=== PATIENT | female | born 1985 | race Caucasian/White ===

== ENCOUNTER 2018-03-06 23:50 | Observation (INO) | payer BC, SELFPAY ==
[2018-03-06 23:53] VITALS: BP 98/52; PULSE 100; RESP 16; TEMP 37.2; O2SAT 97
[2018-03-07] VITALS (12 sets, daily range): BP systolic 76–94; BP diastolic 44–63; PULSE 77–110; RESP 16–19; TEMP 36.9–39.2; O2SAT 96–100
--- NOTE | 2018-03-07 00:08 | W.ED.GENAD ---
Discharge Plan Disposition Patient Disposition: [facility] INPATIENT Condition: Stable Discharge Details Chief Complaint: Abd Prob Clinical Impression: Abdominal pain Primary Care Provider: Andra Rich ED Provider: Garret Ochoa Home Meds and New Rx's Prescriptions: No Action No Known Home Meds RF: 0 Medical Decision Making 32 yo female comes in with abd pain, n/v since 4pm. Denies any new foods or recent travel and no other household members with similar symptoms. HAs not had prior surgeries. She has mild discomfort now in upper abdomen otherwise her pain is much better. She is febrile here to 39, so could be gastroenteritis but will evaluate for possible cholecystitis vs pancreatitis pt's labs show hypokalamia and mild elevation of bilirubin. She has pain in the ruq and rlq without guarding on exam. Awaiting CT. CT shows hepatomegaly, enlarged gallbladder, and thickened appendix. She still has right sided abdominal pain, unclear cholecystitis vs appendicitis. Spoke with Dr. Nova and she requests admission and u/s later this morning and hold on abx at this time. Pt remains stable and is agreeable with plan for admission for further workup Differential Diagnosis gastroenteritis, sbo, cholecystitis HPI General Mode of arrival: ambulatory. Date/Time Provider Initiated Documentation: 03/06/18 23:55. Limitations to Documentation: no limitations. Information obtained by: patient. History of Present Illness 32 year old F presents to the emergency department with the chief complaint of abdominal pain, described as moderate, with intensity rated at 4. Quality is described as aching, and is localized to the abdomen. Patient reports no radiation. No relieving factors improve symptom(s), No exacerbating factors reported . Patient notes nausea/vomiting. Patient did receive the following treatments prior to arrival, none Related Data Home Medications Medication Instructions Recorded Confirmed Unknown [No Known Home Meds] 12/16/17 03/06/18 Allergies Allergy/AdvReac Type Severity Reaction Status Date / Time No Known Allergies Allergy Unverified 03/06/18 23:59 General Stated Complaint: Abd Prob DONAVON: 3 Review of Systems Review of Systems All systems reviewed & are unremarkable except as noted in HPI and below Constitutional Denies chills, Denies fever(s) and Denies weakness Eyes Denies loss of vision ENT Denies change in voice Cardiovascular Denies chest pain and Denies dyspnea Respiratory Denies dyspnea Gastrointestinal Reports abdominal pain, Reports nausea and Reports vomiting Genitourinary Denies dysuria Musculoskeletal Denies joint swelling Integumentary/Breasts Denies rash Neurologic Denies loss of vision and Denies weakness Psychiatric Denies depression Endocrine Denies cold intolerance and Denies heat intolerance Allergic/Immunologic Reports urticaria [facility] Social History Smoking/Tobacco Use Status: Never Exam Const General: no acute distress Orientation: alert HENMT Head: normal to inspection Ears: external ears normal General nose exam: external nose normal Mouth: moist mucous membranes Eyes General: appearance normal, both eyes and all related structures Neck Neck: normal visual inspection Resp Effort & Inspection: normal respiratory effort and able to speak in complete sentences Cardio Rate: regular rate GI Inspection: normal to inspection and other (mild discomfort in upper abdomen, no guarding or rebound, no lower abdominal discomfort) Skin General skin exam: no rashes or lesions noted Neuro General: alert and oriented x3 Extrem General: normal to inspection Psych Mental Status: mental status grossly normal Course Vital Signs Temperature 37.2 C 03/06/18 23:53 Pulse 100 H 03/06/18 23:53 Respiratory Rate 16 03/06/18 23:53 Blood Pressure 98/52 L 03/06/18 23:53 Pulse Oximetry 97 03/06/18 23:53 Temperature 39.2 C H 03/07/18 00:07 Temperature Source Skin 03/07/18 00:07 Pulse 100 H 03/06/18 23:53 Respiratory Rate 16 03/06/18 23:53 Respiratory Effort 03/06/18 23:58 Blood Pressure 98/52 L 03/06/18 23:53 Blood Pressure Position Sitting 03/06/18 23:53 Pulse Oximetry 97 03/06/18 23:53 Pain Level 7 03/06/18 23:53
[2018-03-07] MEDS: Normal Saline 1,000 ML 1000 ML IV ×3 (00:10→12:30)
--- NOTE | 2018-03-07 00:11 | ED.GENADUL_ITS ---
Discharge Plan Disposition Patient Disposition: [facility] INPATIENT Condition: Stable Discharge Details Chief Complaint: Abd Prob Clinical Impression: Abdominal pain Primary Care Provider: Andra Rich ED Provider: Garret Ochoa Home Meds and New Rx's Prescriptions: No Action No Known Home Meds RF: 0 Medical Decision Making 32 yo female comes in with abd pain, n/v since 4pm. Denies any new foods or recent travel and no other household members with similar symptoms. HAs not had prior surgeries. She has mild discomfort now in upper abdomen otherwise her pain is much better. She is febrile here to 39, so could be gastroenteritis but will evaluate for possible cholecystitis vs pancreatitis pt's labs show hypokalamia and mild elevation of bilirubin. She has pain in the ruq and rlq without guarding on exam. Awaiting CT. CT shows hepatomegaly, enlarged gallbladder, and thickened appendix. She still has right sided abdominal pain, unclear cholecystitis vs appendicitis. Spoke with Dr. Nova and she requests admission and u/s later this morning and hold on abx at this time. Pt remains stable and is agreeable with plan for admission for further workup Differential Diagnosis gastroenteritis, sbo, cholecystitis HPI General Mode of arrival: ambulatory . Date/Time Provider Initiated Documentation: 03/06/18 23:55 . Limitations to Documentation: no limitations . Information obtained by: patient . History of Present Illness 32 year old F presents to the emergency department with the chief complaint of abdominal pain, described as moderate, with intensity rated at 4. Quality is described as aching, and is localized to the abdomen. Patient reports no radiation. No relieving factors improve symptom(s), No exacerbating factors reported . Patient notes nausea/vomiting. Patient did receive the following treatments prior to arrival, none Related Data Home Medications Medication Instructions Recorded Confirmed Unknown [No Known Home Meds] 12/16/17 03/06/18 Allergies Allergy/AdvReac Type Severity Reaction Status Date / Time No Known Allergies Allergy Unverified 03/06/18 23:59 General Stated Complaint: Abd Prob DONAVON: 3 Review of Systems Review of Systems All systems reviewed & are unremarkable except as noted in HPI and below Constitutional Denies chills, Denies fever(s) and Denies weakness Eyes Denies loss of vision ENT Denies change in voice Cardiovascular Denies chest pain and Denies dyspnea Respiratory Denies dyspnea Gastrointestinal Reports abdominal pain, Reports nausea and Reports vomiting Genitourinary Denies dysuria Musculoskeletal Denies joint swelling Integumentary/Breasts Denies rash Neurologic Denies loss of vision and Denies weakness Psychiatric Denies depression Endocrine Denies cold intolerance and Denies heat intolerance Allergic/Immunologic Reports urticaria [facility] Social History Smoking/Tobacco Use Status: Never Exam Const General: no acute distress Orientation: alert HENMT Head: normal to inspection Ears: external ears normal General nose exam: external nose normal Mouth: moist mucous membranes Eyes General: appearance normal, both eyes and all related structures Neck Neck: normal visual inspection Resp Effort & Inspection: normal respiratory effort and able to speak in complete sentences Cardio Rate: regular rate GI Inspection: normal to inspection and other (mild discomfort in upper abdomen, no guarding or rebound, no lower abdominal discomfort) Skin General skin exam: no rashes or lesions noted Neuro General: alert and oriented x3 Extrem General: normal to inspection Psych Mental Status: mental status grossly normal Course Vital Signs Temperature 37.2 C 03/06/18 23:53 Pulse 100 H 03/06/18 23:53 Respiratory Rate 16 03/06/18 23:53 Blood Pressure 98/52 L 03/06/18 23:53 Pulse Oximetry 97 03/06/18 23:53 Temperature 39.2 C H 03/07/18 00:07 Temperature Source Skin 03/07/18 00:07 Pulse 100 H 03/06/18 23:53 Respiratory Rate 16 03/06/18 23:53 Respiratory Effort 03/06/18 23:58 Blood Pressure 98/52 L 03/06/18 23:53 Blood Pressure Position Sitting 03/06/18 23:53 Pulse Oximetry 97 03/06/18 23:53 Pain Level 7 03/06/18 23:53
[2018-03-07 00:17] LABS: Abs Immature Grans 0.01 k/cumm (0.0-0.09); Absolute Eosinophil Count 0.01 k/cumm (0.0-0.7); Absolute Lymphocyte Count 0.23 k/cumm (1.2-3.4); Absolute Monocyte Count 0.01 k/cumm (0.11-0.7); Absolute Neutrophil Count 4.19 k/cumm (1.2-6.7); Eosinophils % 0.2; HCT 40.2 % (36.0-46.0); HGB 14.3 g/dL (12.0-15.5); Immature Grans % 0.2; Lymphocytes % 5.2; Mean Corp. HGB Concentration 35.6 g/dL (32.0-36.0); Mean Corpuscular Hemoglobin 30.8 pg (27.0-33.0); Mean Corpuscular Volume 86.5 fL (80-95); Mean Platelet Volume 9.6 fL (8.0-11.0); Monocytes % 0.2; Neutrophils % 94.2; Platelet Count 142 x1000/uL (130-400); RBC 4.65 m/cumm (4.00-5.20); RBC Distribution Width 12.5 % (11.7-14.6); White Blood Cell Count 4.45 k/cumm (4.4-10.8)
[2018-03-07 00:29] LABS: BUN 11 mg/dL (7-18); CREATININE 0.81 mg/dL (0.55-1.02); Calcium 8.7 mg/dL (8.5-10.1); Glucose 91 mg/dL (70-100)
[2018-03-07 00:30] LABS: ALT 26 U/L (12-78); AST 31 U/L (15-37); Albumin 3.6 g/dL (3.4-5.0); Alkaline Phosphatase 95 U/L (46-116); Anion Gap 11.4 mmol/L (3-11); Bilirubin, Direct 0.31 mg/dL (0.00-0.20); Bilirubin, Total 1.2 mg/dL (0.2-1.0); CO2 26.6 mmol/L (21.0-32.0); Chloride 104 mmol/L (98-107); Lipase 81 U/L (73-393); Sodium 142 mmol/L (136-145); Total Protein 6.3 g/dL (6.4-8.2)
[2018-03-07 00:42] LABS: Potassium 2.9 mmol/L (3.5-5.1)
--- NOTE | 2018-03-07 00:45 | DI.CT_ITS ---
SYMPTOM/DIAGNOSIS: UPPER ABD PAIN, VOMITING, FEVER, NAUSEA, ABDOMEN AND PELVIC CT: CT scan of the abdomen and pelvis was performed following the uneventful administration of intravenous contrast material. No priors for comparison. Mild dependent atelectatic changes are seen in the lung bases. The liver appears to be enlarged. There is periportal edema. No hepatic mass is seen. The portal and superior mesenteric veins are patent. The gallbladder is distended. The gallbladder wall appears unremarkable. There is mild pericholecystic fluid present. No biliary ductal dilatation is seen. The spleen, pancreas, adrenal glands, kidneys, ureters and bladder are unremarkable. Note is made of an intrauterine device. The reproductive organs are otherwise unremarkable. There is a retrocecal appendix present. The appendiceal diameter is 1.2 cm. There is thickening of the wall of the appendix. Mild periappendiceal inflammatory changes are present. The findings are suspicious for acute appendicitis. No abscess or free air is seen. The remainder of the bowel is unremarkable. There is a trace amount of free fluid in the cul-de-sac. The bones are intact. IMPRESSION: 1. Findings suggestive for acute appendicitis. Please correlate clinically. 2. Mild hepatomegaly and periportal edema. 3. Distended gallbladder with trace pericholecystic fluid. Sonographic evaluation may be obtained to assess the liver and gallbladder.
[2018-03-07] MEDS: Omnipaque 350 MG/ML 100 ML BTL IJ (00:54)
[2018-03-07] MEDS: Potassium Chloride 20 MEQ TABCR 40 MEQ PO (01:09)
[2018-03-07] MEDS: Ondansetron 4 MG/2 ML VIAL (01:09)
[2018-03-07] MEDS: Acetaminophen 500 MG TAB 1000 MG ×2 (01:09→21:17)
--- NOTE | 2018-03-07 01:23 | DI.VRAD_ITS ---
EXAM: CT Abdomen and Pelvis With Intravenous Contrast CLINICAL HISTORY: 32 years old, female; Pain; Abdominal pain; Generalized; Patient HX: Abdominal pain, vomiting, nausea and fever. Pain going into lower back. TECHNIQUE: Axial computed tomography images of the abdomen and pelvis with intravenous contrast. All CT scans at this facility use at least one of these dose optimization techniques: automated exposure control; mA and/or kV adjustment per patient size (includes targeted exams where dose is matched to clinical indication); or iterative reconstruction. Coronal and sagittal reformatted images were created and reviewed. CONTRAST: 100 mL of Omnipaque 350 administered intravenously. COMPARISON: US OB 07/24/2016 4:42 PM FINDINGS: Lung bases: Nonspecific bilateral dependent pleuroparenchymal changes at the lung bases. ABDOMEN: Liver: The liver demonstrates periportal edema. Mildly enlarged liver measures 20 cm in craniocaudal dimension. Gallbladder and bile ducts: Gallbladder is mildly distended, suggestion of thickening of the wall and pericholecystic fluid. No ductal dilation. Pancreas: Unremarkable. No mass. No ductal dilation. Spleen: Unremarkable. No splenomegaly. Adrenals: Unremarkable. No mass. Kidneys and ureters: Unremarkable. No solid mass. No hydronephrosis. Stomach and bowel: Unremarkable. No obstruction. No mucosal thickening. PELVIS: Appendix: The appendix is mildly thickened. Suggestion of mild stranding in the right lower quadrant. Bladder: Unremarkable. No mass. Reproductive: IUD in place. ABDOMEN and PELVIS: Intraperitoneal space: Small amount of pelvic ascites. No free air. Bones/joints: No acute fracture. No dislocation. Soft tissues: Unremarkable. Vasculature: Unremarkable. No abdominal aortic aneurysm. Lymph nodes: Unremarkable. No enlarged lymph nodes. IMPRESSION: The appendix is mildly thickened, correlate clinically to rule out acute appendicitis. Hepatomegaly, periportal edema. No focal liver lesions demonstrated. Gallbladder is distended, trace pericholecystic fluid. If further evaluation of the gallbladder is desired, consider right upper quadrant ultrasound. Trace pelvic ascites within physiologic range. IUD in place. Dictated and Authenticated by: Emiliano Stubbs MD. Ordering:JAILENE MONTGOMERY MD
--- NOTE | 2018-03-07 01:33 | DI.US_ITS ---
SYMPTOMS/DIAGNOSIS: ABDOMINAL PAIN, PERICHOLECYSTIC FLUID ON CT ABDOMINAL ULTRASOUND: Routine examination. Comparison CT scan from earlier in the day. The visualized liver parenchyma is normal in appearance. There is no evidence of cholelithiasis. The common bile duct is of normal diameter. The pancreas and spleen appear intact. No renal abnormality is seen. The abdominal aorta is of normal diameter. Normal appearance of IVC. CONCLUSION: Normal abdominal ultrasound.
[2018-03-07] MEDS: Normal Saline 1,000 ML 150 ML IV ×3 (03:32→21:10)
[2018-03-07] MEDS: PIPERACILLIN/TAZO 3.375 GM in Normal Saline 50 ML IVPB ×2 (03:33→10:32)
[2018-03-07 07:04] LABS: Abs Immature Grans 0.04 k/cumm (0.0-0.09); Absolute Eosinophil Count 0.02 k/cumm (0.0-0.7); Absolute Monocyte Count 0.36 k/cumm (0.11-0.7); Basophils % 0.1; Eosinophils % 0.1; HCT 34.2 % (36.0-46.0); HGB 11.9 g/dL (12.0-15.5); Immature Grans % 0.3; Lymphocytes % 1.7; Mean Corp. HGB Concentration 34.8 g/dL (32.0-36.0); Mean Corpuscular Hemoglobin 30.8 pg (27.0-33.0); Mean Corpuscular Volume 88.6 fL (80-95); Mean Platelet Volume 10.3 fL (8.0-11.0); Monocytes % 2.4; Neutrophils % 95.4; Platelet Count 127 x1000/uL (130-400); RBC 3.86 m/cumm (4.00-5.20); RBC Distribution Width 12.6 % (11.7-14.6); White Blood Cell Count 15.11 k/cumm (4.4-10.8)
[2018-03-07 07:20] LABS: Absolute Basophil Count 0.02 k/cumm (0.0-0.2); Absolute Lymphocyte Count 0.26 k/cumm (1.2-3.4); Absolute Neutrophil Count 14.41 k/cumm (1.2-6.7)
[2018-03-07 07:56] LABS: ALT 21 U/L (12-78); AST 24 U/L (15-37); Albumin 2.8 g/dL (3.4-5.0); Alkaline Phosphatase 41 U/L (46-116); Anion Gap 11.1 mmol/L (3-11); BUN 11 mg/dL (7-18); Bilirubin, Total 1.1 mg/dL (0.2-1.0); CO2 22.9 mmol/L (21.0-32.0); CREATININE 0.82 mg/dL (0.55-1.02); Calcium 7.7 mg/dL (8.5-10.1); Chloride 107 mmol/L (98-107); Glucose 97 mg/dL (70-100); Potassium 3.4 mmol/L (3.5-5.1); Sodium 141 mmol/L (136-145); Total Protein 4.9 g/dL (6.4-8.2)
--- NOTE | 2018-03-07 08:37 | PDOC.CMIN ---
- If Service Date Differs Date of service: 03/07/18 Time of Service: 08:37 Care Management Initial Assess REASON FOR HOSPITALIZATION:: Abdominal pain, possible cholecystitis, possible PRABHU. PAST MEDICAL HISTORY/PAST SURGICAL HISTORY:: None documented or reported. PREVIOUS FUNCTIONAL STATUS/SOCIAL/FAMILY SUPPORTS:: Alexandra resides in [place] with her , Brennon, and their three children, ages one, three and five. She works as a teacher at [employer]. Alexandra reports that she is independent with her ADLs and transportation and has good supports in the community and at home. CURRENT FUNCTIONAL STATUS:: Alexandra is lying in bed when CM visits this morning. She is engaged in conversation, makes good eye contact and is talkative. Alexandra reports that pain is tolerable at the moment but her recent ultrasound suggests inflammation of both her gallbladder and appendix. She reports that she is ok having some quiet time and wants to try and get some sleep. She is NPO and receiving IV fluids. Alexandra's sister is visiting and is helping Brennon out at home with the children. ADVANCE DIRECTIVES:: None on file at [facility]. Has patient been provided with information about the portal?: Yes Did the patient sign up for the portal?: No CODE STATUS:: Full Code INSURANCE COVERAGE / FINANCIAL ISSUES:: [facility]. PRIMARY CARE PHYSICIAN:: Andra Rich. Alexandra reports that she has just started at the [facility] in [place] and has been attempting to get an appointment. POTENTIAL DISCHARGE NEEDS:: Follow up appointment with MD. PATIENT/FAMILY EDUCATION NEEDS:: Discharge education, any limitations, and follow up plan of care. Ask Me Three discussion. ANTICIPATED BARRIERS TO DISCHARGE:: No anticipated barriers to discharge. TRANSPORTATION:: Alexandra will transport via private vehicle with her , Brennon. PLAN:: Alexandra will discharge home when medically ready per MD. Anticipate patient will discharge with no services and follow up with MD. CM will continue to offer support to patient and care team regarding discharge planning and disposition.
--- NOTE | 2018-03-07 08:41 | INITIAL_ITS ---
- If Service Date Differs Date of service: 03/07/18 Time of Service: 08:37 Care Management Initial Assess REASON FOR HOSPITALIZATION:: Abdominal pain, possible cholecystitis, possible PRABHU. PAST MEDICAL HISTORY/PAST SURGICAL HISTORY:: None documented or reported. PREVIOUS FUNCTIONAL STATUS/SOCIAL/FAMILY SUPPORTS:: Alexandra resides in [place] with her , Brennon, and their three children, ages one, three and five. 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 CURRENT FUNCTIONAL STATUS:: Alexandra is lying in bed when CM visits this morning. She is engaged in conversation, makes good eye contact and is talkative. Alexandra reports that pain is tolerable at the moment but her recent ultrasound suggests inflammation of both her gallbladder and appendix. She reports that she is ok having some quiet time and wants to try and get some sleep. She is NPO and receiving IV fluids. Alexandra's sister is visiting and is helping Brennon out at home with the children. ADVANCE DIRECTIVES:: None on file at [facility]. Has patient been provided with information about the portal?: Yes Did the patient sign up for the portal?: No CODE STATUS:: Full Code INSURANCE COVERAGE / FINANCIAL ISSUES:: [facility]. PRIMARY CARE PHYSICIAN:: Andra Rich. Alexandra reports that she has just started at the [facility] in [place] and has been attempting to get an appointment. POTENTIAL DISCHARGE NEEDS:: Follow up appointment with MD. PATIENT/FAMILY EDUCATION NEEDS:: Discharge education, any limitations, and follow up plan of care. Ask Me Three discussion. ANTICIPATED BARRIERS TO DISCHARGE:: No anticipated barriers to discharge. TRANSPORTATION:: Alexandra will transport via private vehicle with her , Brennon. PLAN:: Alexandra will discharge home when medically ready per MD. Anticipate patient will discharge with no services and follow up with MD. CM will continue to offer support to patient and care team regarding discharge planning and disposition.
--- NOTE | 2018-03-07 09:32 | HPE_ITS ---
Date of service: 03/07/18 Time of Service: 09:30 Assessment and Plan (1) Fever: Current visit: Yes Status: Acute 32 y/o female with persistent fever of uncertain origin. Despite the initial CT findings, the patient does not exhibit any localizing signs of cholecystitis or appendicitis. Abdominal ultrasound was read as normal. No plans for appendectomy or cholecystectomy at this time. Fever persists despite starting patient on Zosyn. WBC elevated to ~ 15k. Discussed with hospitalist, Dr. Melgar, for medical consultation re: fever/ leukocytosis. ? viral ? PID. (2) Abdominal pain: Current visit: Yes Status: Acute 32 y/o female with recurrent abdominal pain. Abdominal pain has resolved. Now c/o some back pain and hip/leg pain. As above. Appreciate hospitalist input. History of Present Illness Chief Complaint: Abdominal pain Narrative: 32 y/o female who presented to the ED last night with abdominal pain. Patient describes the pain as severe, starting in the epigastrium and then radiating down to her lower abdomen. She has had intermittent episodes of this pain over the past 10 years which resolve with time. They have become more frequent over the past few months. She has also noted associated fevers/ chills/nausea/vomiting with the last several episodes including the one last night. She has had some loose stools. She denies any melena, hematochezia, constipation, dysuria or hematuria. She denies any recent sick contacts, recent travel, or change in diet. She denies any relation of symptoms to specific food intake. She denies any upper respiratory symptoms. She denies any chronic medical conditions or prior surgery. She is not on any medications regularly. She denies any significant FMH. This morning, the patient notes that her pain has resolved and her abdomen feels fine. She denies nausea or vomiting this morning. She does feel slightly feverish still. She had noted chills prior to admission. Evaluation in the ED noted a normal WBC. Temp up to [address] abd/ pelvis was suggestive of both possible cholecystitis and acute appendicitis. Per [facility] report, gallbladder was noted to mildly distended with suggestion of thickening of the wall and pericholecystic fluid. No ductal dilation. Appendix was described as The appendix is mildly thickened. Suggestion of mild stranding in the right lower quadrant. Films reviewed. Final report pending. Abdominal U/S this am was reviewed. Report read as normal ultrasound. On follow-up visit this am after the ultrasound, patient c/o pain radiating down her back to her hips/legs. She denies any vaginal discharge/ pelvic pain. She has an IUD which has been in place for about 1 year. Repeat BP this am - 80s/40s. Temp - 38.5. Review of Systems Review of Systems All systems reviewed & are unremarkable except as noted in HPI and below Constitutional Reports chills and Reports fever(s) Gastrointestinal Reports abdominal pain, Denies melena, Denies hematochezia, Reports loose stools , Reports nausea and Reports vomiting Genitourinary Denies hematuria and Denies dysuria PFSH Social History Smoking/Tobacco Use Status: Never Meds Home Medications Medication Instructions Recorded Confirmed Type Unknown [No Known Home Meds] 12/16/17 03/06/18 History Allergies Allergy/AdvReac Type Severity Reaction Status Date / Time No Known Allergies Allergy Unverified 03/06/18 23:59 Exam Const General: cooperative, healthy appearing, comfortable and no acute distress [facility] Head: normocephalic and atraumatic Eyes Sclera: sclerae normal Resp Effort & Inspection: normal respiratory effort and able to speak in complete sentences Cardio Jugular venous pressure: no JVD Rate: regular rate Rhythm: regular rhythm GI Inspection: non-distended and no scars Palpation: soft, not firm, no guarding, not rigid and nontender Skin General skin exam: no rashes or lesions noted and no jaundice Neuro General: alert and oriented x3 Speech: speech normal Psych Appearance: grossly normal and well kempt Mental Status: mental status grossly normal Speech and Movement: speech and movement normal Affect: normal affect Attitude: cooperative Results Imaging Abdomen CT scan report/results: report reviewed and image reviewed CT scan - pelvis: report reviewed and image reviewed Abdominal ultrasound report/results : report reviewed and image reviewed Labs : 03/07/18 06:10 03/07/18 06:10 Laboratory Results - last 24 hr 03/07/18 03/07/18 03/07/18 00:05 00:05 06:10 WBC 4.45 15.11 H D RBC 4.65 3.86 L Hgb 14.3 11.9 L D Hct 40.2 34.2 L MCV 86.5 88.6 MCH 30.8 30.8 MCHC 35.6 34.8 RDW 12.5 12.6 Plt Count 142 127 L MPV 9.6 10.3 Immature Gran % 0.2 0.3 Neutrophils % 94.2 95.4 Lymphocytes % 5.2 1.7 Monocytes % 0.2 2.4 Eosinophils % 0.2 0.1 Basophils % 0.0 0.1 Absolute Neutrophils 4.19 14.41 H Absolute Lymphocytes 0.23 L 0.26 L Absolute Monocytes 0.01 L 0.36 Absolute Eosinophils 0.01 0.02 Absolute Basophils 0.00 0.02 Sodium 142 Potassium 2.9 L* Chloride 104 Carbon Dioxide 26.6 Anion Gap 11.4 H BUN 11 Creatinine 0.81 Estimated GFR/1.73 m2 >= 60.00 Glucose 91 Calcium 8.7 Total Bilirubin 1.2 H Conjugated Bilirubin 0.31 H AST 31 ALT 26 Alkaline Phosphatase 95 Total Protein 6.3 L Albumin 3.6 Lipase 81 03/07/18 06:10 WBC RBC Hgb Hct MCV MCH MCHC RDW Plt Count MPV Immature Gran % Neutrophils % Lymphocytes % Monocytes % Eosinophils % Basophils % Absolute Neutrophils Absolute Lymphocytes Absolute Monocytes Absolute Eosinophils Absolute Basophils Sodium 141 Potassium 3.4 L Chloride 107 Carbon Dioxide 22.9 Anion Gap 11.1 H BUN 11 Creatinine 0.82 Estimated GFR/1.73 m2 >= 60.00 Glucose 97 Calcium 7.7 L Total Bilirubin 1.1 H Conjugated Bilirubin AST 24 ALT 21 Alkaline Phosphatase 41 L Total Protein 4.9 L Albumin 2.8 L Lipase
[2018-03-07] MEDS: Normal Saline Flush 10 ML SYR (10:32)
--- NOTE | 2018-03-07 10:32 | PHARADMIT ---
Admission Pharmacy Clinical Review ABDOMINAL PAIN, POSSIBLE CHOLECYSTITIS/APPY Code Status Full Code Current Weight Wgt- 67.9 kg Renally Cleared and Narrow Therapeutic Index Meds CrCl~ 97.5 mL/min Meds-oK QTc Value / Action Taken NA BP Control, Fever BP- 86/53 Tmax- 37.5C Electrolytes reviewed Na-141 K+3.4 DVT Prophylaxis No (? surgery needed?) Opiate Usage / Scheduled Bowel Regimen Ordered No No Plt/SCr for Heparin / Enoxaparin Plts-127 SCr-0.82 INR for Warfarin na H/H stable, WBC/Bands H&H- 11.9/34.2 WBC- 15.11 Antibiotic appropriateness Zosyn Cultures and Sensitivities none Surgical ABX d/c within 24 hr na DM control / Insulin Dosing BG- 97 Heart Failure (Check EF%) (LEESA's, B-Block, Diuretics) none IV to PO Switch No Home Meds Reviewed Yes Home Meds Not Ordered No Known Home Meds Comments Lipase- 81
[2018-03-07 10:44] LABS: Bilirubin Negative (Negative); Blood Negative (Negative); Clarity Clear; Glucose Negative (Negative); Ketones Negative (Negative); Leukocyte Esterase Negative (Negative); Nitrite Negative (Negative); Urobilinogen 0.2 EU/dL (Up TO 0.2)
[2018-03-07 11:07] LABS: Bacteria Few HPF (Negative); Casts Negative LPF (Negative); Crystals Negative HPF (Negative); Mucus Negative (Negative); RBC Negative (0-2); WBC 0-2 HPF (0-5)
[2018-03-07 11:08] LABS: C & S Indicated? No; Epithelial Cells Moderate HPF (Negative)
[2018-03-07] MEDS: Acetaminophen 500 MG TAB 1000 MG PO (11:43)
[2018-03-07 12:34] LABS: Lactate-non-spesis 1.2 mmol/L (0.6-1.4)
--- NOTE | 2018-03-07 15:31 | CHAPLAIN ---
Alexandra was in bed when I visited. She was pleasant and engaged in a conversation, but did not seem interested in further conversation at this time. Her was with her. I explained my role and offered support.
--- NOTE | 2018-03-07 15:37 | W.PM.PROGNOT ---
Assessment and Plan (1) Fever: Current visit: Yes Status: Acute 32 y/o female with persistent fever of uncertain origin. Despite the initial CT findings, the patient does not exhibit any localizing signs of cholecystitis or appendicitis. Abdominal ultrasound was read as normal. No plans for appendectomy or cholecystectomy at this time. Fever persists despite starting patient on Zosyn. WBC elevated to ~ 15k. Discussed with hospitalist, Dr. Melgar, for medical consultation re: fever/ leukocytosis. ? viral ? PID. Patient does not currently have a PCP. We discussed establishing her with a PCP for close follow-up next week. Encouraged po as tolerated. Consider d/c Zosyn and follow-up WBC in am. If WBC stable or improving and symptoms do not recur, then consider d/c home with close follow-up with a PCP next week. Patient wishes to go home tonight. I would not advise this as we have not determined the etiology of her fever/leukocytosis and she remains intermittently febrile and hypotensive. We discussed that she does have the option of signing out against medical advice if she wishes. (2) Abdominal pain: Current visit: Yes Status: Acute 32 y/o female with recurrent abdominal pain. Abdominal pain has resolved. Now c/o some back pain and hip/leg pain. As above. Appreciate hospitalist input. Subjective Patient reports: no new complaints and feels better Interval history since last seen: Patient seen with hospitalist, Dr. Melgar, at the bedside. Patient denies abdominal pain. Feeling better overall and wants to go home. Notes that she does not have much appetite and has only had some tomato soup so far. Temp - 37.1 after Tylenol. BP still 80s/50s on IVF after additional bolus. Asymptomatic. Exam Const General: cooperative and no acute distress Orientation: alert and oriented x3 Objective Objective Clinical Data: Abnormal lab results 03/07/18 03/07/18 03/07/18 Range/Units 00:05 00:05 06:10 WBC 15.11 H D (4.4-10.8) k/cumm RBC 3.86 L (4.00-5.20) m/cumm Hgb 11.9 L D (12.0-15.5) g/dL Hct 34.2 L (36.0-46.0) % Plt Count 127 L (130-400) x1000/uL Absolute Neutrophils 14.41 H (1.2-6.7) k/cumm Absolute Lymphocytes 0.23 L 0.26 L (1.2-3.4) k/cumm Absolute Monocytes 0.01 L (0.11-0.7) k/cumm Potassium 2.9 L* (3.5-5.1) mmol/L Anion Gap 11.4 H (3-11) mmol/L Calcium (8.5-10.1) mg/dL Total Bilirubin 1.2 H (0.2-1.0) mg/dL Conjugated Bilirubin 0.31 H (0.00-0.20) mg/dL Alkaline Phosphatase (46-116) U/L Total Protein 6.3 L (6.4-8.2) g/dL Albumin (3.4-5.0) g/dL Urine Protein (Negative) mg/dL 03/07/18 03/07/18 Range/Units 06:10 10:35 WBC (4.4-10.8) k/cumm RBC (4.00-5.20) m/cumm Hgb (12.0-15.5) g/dL Hct (36.0-46.0) % Plt Count (130-400) x1000/uL Absolute Neutrophils (1.2-6.7) k/cumm Absolute Lymphocytes (1.2-3.4) k/cumm Absolute Monocytes (0.11-0.7) k/cumm Potassium 3.4 L (3.5-5.1) mmol/L Anion Gap 11.1 H (3-11) mmol/L Calcium 7.7 L (8.5-10.1) mg/dL Total Bilirubin 1.1 H (0.2-1.0) mg/dL Conjugated Bilirubin (0.00-0.20) mg/dL Alkaline Phosphatase 41 L (46-116) U/L Total Protein 4.9 L (6.4-8.2) g/dL Albumin 2.8 L (3.4-5.0) g/dL Urine Protein 30 H (Negative) mg/dL Vital Signs Temperature 37.1 C 03/07/18 14:14 Temperature Source Tympanic 03/07/18 14:14 Pulse 89 03/07/18 14:14 Pulse Rhythm Regular 10/05/18 02:29 Respiratory Rate 18 03/07/18 11:32 Respiratory Effort Non-Labored 03/07/18 02:29 Respiratory Depth Normal 03/07/18 02:29 Respiratory Pattern Normal 03/07/18 02:29 Blood Pressure 86/52 L 03/07/18 14:30 Blood Pressure Position Sitting 03/06/18 23:53 Pulse Oximetry 96 03/07/18 11:32 Oxygen Delivery Method Room Air 03/07/18 11:32 Oxygen Flow Rate 0 03/07/18 11:32 Pain Level 3 03/07/18 11:32 Comment 03/07/18 14:30 Intake & Output 03/06/18 03/07/18 03/07/18 23:59 11:59 23:59 Intake Total 2049 Balance 2049 Weight 67.9 kg 67.9 kg Intake: IV 2049 Laboratory Results WBC 15.11 k/cumm (4.4-10.8) H D 03/07/18 06:10 RBC 3.86 m/cumm (4.00-5.20) L 03/07/18 06:10 Hgb 11.9 g/dL (12.0-15.5) L D 03/07/18 06:10 Hct 34.2 % (36.0-46.0) L 03/07/18 06:10 MCV 88.6 fL (80-95) 03/07/18 06:10 MCH 30.8 pg (27.0-33.0) 03/07/18 06:10 MCHC 34.8 g/dL (32.0-36.0) 03/07/18 06:10 RDW 12.6 % (11.7-14.6) 03/07/18 06:10 Plt Count 127 x1000/uL (130-400) L 03/07/18 06:10 MPV 10.3 fL (8.0-11.0) 03/07/18 06:10 Immature Gran % 0.3 03/07/18 06:10 Neutrophils % 95.4 03/07/18 06:10 Lymphocytes % 1.7 03/07/18 06:10 Monocytes % 2.4 03/07/18 06:10 Eosinophils % 0.1 03/07/18 06:10 Basophils % 0.1 03/07/18 06:10 Absolute Neutrophils 14.41 k/cumm (1.2-6.7) H 03/07/18 06:10 Absolute Lymphocytes 0.26 k/cumm (1.2-3.4) L 03/07/18 06:10 Absolute Monocytes 0.36 k/cumm (0.11-0.7) 03/07/18 06:10 Absolute Eosinophils 0.02 k/cumm (0.0-0.7) 03/07/18 06:10 Absolute Basophils 0.02 k/cumm (0.0-0.2) 03/07/18 06:10 Sodium 141 mmol/L (136-145) 03/07/18 06:10 Potassium 3.4 mmol/L (3.5-5.1) L 03/07/18 06:10 Chloride 107 mmol/L (98-107) 03/07/18 06:10 Carbon Dioxide 22.9 mmol/L (21.0-32.0) 03/07/18 06:10 Anion Gap 11.1 mmol/L (3-11) H 03/07/18 06:10 BUN 11 mg/dL (7-18) 03/07/18 06:10 Creatinine 0.82 mg/dL (0.55-1.02) 03/07/18 06:10 Estimated GFR/1.73 m2 >= 60.00 (mL/min/1.73m2) 03/07/18 06:10 Glucose 97 mg/dL (70-100) 03/07/18 06:10 Lactate 1.2 mmol/L (0.6-1.4) 03/07/18 12:15 Calcium 7.7 mg/dL (8.5-10.1) L 03/07/18 06:10 Total Bilirubin 1.1 mg/dL (0.2-1.0) H 03/07/18 06:10 Conjugated Bilirubin 0.31 mg/dL (0.00-0.20) H 03/07/18 00:05 AST 24 U/L (15-37) 03/07/18 06:10 ALT 21 U/L (12-78) 03/07/18 06:10 Alkaline Phosphatase 41 U/L (46-116) L 03/07/18 06:10 Total Protein 4.9 g/dL (6.4-8.2) L 03/07/18 06:10 Albumin 2.8 g/dL (3.4-5.0) L 03/07/18 06:10 Lipase 81 U/L (73-393) 03/07/18 00:05 Urine Color Yellow (Yellow) 03/07/18 10:35 Urine Clarity Clear 03/07/18 10:35 Urine pH 6.0 (5-8) 03/07/18 10:35 Ur Specific [place] 1.010 (1.005-1.025) 03/07/18 10:35 Urine Protein 30 mg/dL (Negative) H 03/07/18 10:35 Urine Ketones Negative mg/dL (Negative) 03/07/18 10:35 Urine Blood Negative (Negative) 03/07/18 10:35 Urine Nitrite Negative (Negative) 03/07/18 10:35 Urine Bilirubin Negative (Negative) 03/07/18 10:35 Urine Urobilinogen 0.2 EU/dL (Up TO 0.2) 03/07/18 10:35 Ur Leukocyte Esterase Negative (Negative) 03/07/18 10:35 Urine RBC Negative (0-2) 03/07/18 10:35 Urine WBC 0-2 HPF (0-5) 03/07/18 10:35 Ur Epithelial Cells Moderate HPF (Negative) 03/07/18 10:35 Urine Crystals Negative HPF (Negative) 03/07/18 10:35 Urine Bacteria Few HPF (Negative) 03/07/18 10:35 Urine Casts Negative LPF (Negative) 03/07/18 10:35 Urine Mucus Negative (Negative) 03/07/18 10:35 Ur Culture Indicated? No 03/07/18 10:35 Urine Glucose Negative mg/dL (Negative) 03/07/18 10:35
--- NOTE | 2018-03-07 15:57 | MCONE_ITS ---
Date of service: 03/07/18 Time of Service: 15:53 Assessment and Plan (1) Abdominal pain: Current visit: Yes Status: Acute Accompanied by fever, leucocytosis. Seems to be resolving. Etiology is unclear. Differential diagnosis: gastritis/peptic ulcer, viral or bacterial gastroenteritis, much less likely PID. I initiated a PPI and feel that the patient could benefit from a gastroenterology evaluation in the future for a possible EGD given the recurrent nature of her symptoms. Defer diet to primary team. (2) SIRS (systemic inflammatory response syndrome): Current visit: Yes Status: Acute As there is no clear bacterial process, I think it is safe to discontinue zosyn and monitor the patient for recurrence of fever as well as the trend in her WBC. Continue IVF. (3) Hypotension: Current visit: Yes Status: Acute The patient's baseline systolic blood pressure are around 90's - here, there are in the 80's. She is asymptomatic, but clinically visibly dehydrated. Continue IVF and monitor fever curve. (4) Dehydration: Current visit: Yes Status: Acute Continue IVF - as above History of Present Illness Chief Complaint: Abdominal pain and fever; Consult is being requested by Dr Nova. Narrative: Ms Alexandra Brewer is a 32-year-old female with past medical history recurrent abdominal pains, previously diagnosed as abdominal migraines by naturopathic practitioner, who came to the emergency room yesterday and was admitted to the surgical service for suspicion of appendicitis causing her current episode abdominal pain. The pain started yesterday between 4 and 5 PM, initially localizing between her ribs, in the epigastric area, with radiation throughout her abdomen, which became moderate to severe. The patient also had nausea and vomiting, having vomited 6 times yesterday. She denies any blood/ coffee grounds in her emetic contents or blood in her stools. She had some soft loose stools, but no diarrhea. The patient states that prior to this, she had not had an appetite for a week. She had a peanut butter and jelly sandwich as well as an apple for lunch but did not have breakfast yesterday. Patient states that she had been having episodic abdominal pain, just like this, for the last 10 years, about once a month. She cannot think of a trigger other than stress that she can correlate with the onset of abdominal pain. The naturopathic practitioner had prescribed her a tincture of wild yam - which she took once. After this, she had not had any episodes in 6 years. The episodes started to happen again in the last few months. Notably, the last 2 episodes were also accompanied by fevers and chills, which she had not had before. She drinks raw milk, as does the remainder of her family. No one else in the family is sick. She used get these abdominal pains even before she drank raw milk. She drinks well water, but it has been tested and was found to be negative for any pathogens. At this time, the pain has completely resolved, as has her nausea and vomiting. The patient is able to tolerate tomato soup. While the CT scan was suspicious for acute appendicitis, clinically, the suspicion for this is very low, per surgery. The patient also does not have cholecystitis, as per CT as well as abdominal ultrasound. She has an IUD, which was placed 1 year ago. Patient is sexually active with her , has not noticed any changes to her vaginal discharge or foul smell, and strongly believes that she does not have an STD. The patient verbalizes that she would like to go home. Consults Consult date: 03/07/18 Review of Systems Review of Systems 12 systems were reviewed. Pertinent positives and negatives are as per HPI. PFSH Family History Other Adrenal cancer Medical History Abdominal migraine (Suspected) Adrenal cancer (Resolved) Heartburn during (Resolved) Social History Hx Recent Travel: No Smoking/Tobacco Use Status: Never substance use type: does not use Female Reproductive History Menstrual control method: other (IUD) Exam Narrative Exam Narrative: General: Well nourished, well developed female, sitting comfortably in bed; appears fatigued. Neurological: Alert oriented x3 without any focal deficits Psychiatric: Tearful when talking about stress in her life; otherwise appropriate speech pattern and content Skin: Intact; dry HEENT: Atraumatic, normocephalic, extraocular movements are intact, dry mucous membranes, clear oropharynx, no submandibular or cervical lymphadenopathy, no goiter or JVD next Cardiovascular: Regularly regular rhythm, no murmurs, rubs, gallops Lungs: Clear to auscultation bilateral Gastrointestinal: Abdomen soft, nontender on my exam, nondistended Extremities: Plus pedal pulses bilaterally, no edema, clubbing, or cyanosis Results Labs : 03/07/18 06:10 03/07/18 06:10 Laboratory Results - last 24 hr 03/07/18 03/07/18 03/07/18 00:05 00:05 06:10 WBC 4.45 15.11 H D RBC 4.65 3.86 L Hgb 14.3 11.9 L D Hct 40.2 34.2 L MCV 86.5 88.6 MCH 30.8 30.8 MCHC 35.6 34.8 RDW 12.5 12.6 Plt Count 142 127 L MPV 9.6 10.3 Immature Gran % 0.2 0.3 Neutrophils % 94.2 95.4 Lymphocytes % 5.2 1.7 Monocytes % 0.2 2.4 Eosinophils % 0.2 0.1 Basophils % 0.0 0.1 Absolute Neutrophils 4.19 14.41 H Absolute Lymphocytes 0.23 L 0.26 L Absolute Monocytes 0.01 L 0.36 Absolute Eosinophils 0.01 0.02 Absolute Basophils 0.00 0.02 Sodium 142 Potassium 2.9 L* Chloride 104 Carbon Dioxide 26.6 Anion Gap 11.4 H BUN 11 Creatinine 0.81 Estimated GFR/1.73 m2 >= 60.00 Glucose 91 Lactate Calcium 8.7 Total Bilirubin 1.2 H Conjugated Bilirubin 0.31 H AST 31 ALT 26 Alkaline Phosphatase 95 Total Protein 6.3 L Albumin 3.6 Lipase 81 Urine Color Urine Clarity Urine pH Ur Specific [place] Urine Protein Urine Ketones Urine Blood Urine Nitrite Urine Bilirubin Urine Urobilinogen Ur Leukocyte Esterase Urine RBC Urine WBC Ur Epithelial Cells Urine Crystals Urine Bacteria Urine Casts Urine Mucus Ur Culture Indicated? Urine Glucose 03/07/18 03/07/18 03/07/18 06:10 10:35 12:15 WBC RBC Hgb Hct MCV MCH MCHC RDW Plt Count MPV Immature Gran % Neutrophils % Lymphocytes % Monocytes % Eosinophils % Basophils % Absolute Neutrophils Absolute Lymphocytes Absolute Monocytes Absolute Eosinophils Absolute Basophils Sodium 141 Potassium 3.4 L Chloride 107 Carbon Dioxide 22.9 Anion Gap 11.1 H BUN 11 Creatinine 0.82 Estimated GFR/1.73 m2 >= 60.00 Glucose 97 Lactate 1.2 Calcium 7.7 L Total Bilirubin 1.1 H Conjugated Bilirubin AST 24 ALT 21 Alkaline Phosphatase 41 L Total Protein 4.9 L Albumin 2.8 L Lipase Urine Color Yellow Urine Clarity Clear Urine pH 6.0 Ur Specific [place] 1.010 Urine Protein 30 H Urine Ketones Negative Urine Blood Negative Urine Nitrite Negative Urine Bilirubin Negative Urine Urobilinogen 0.2 Ur Leukocyte Esterase Negative Urine RBC Negative Urine WBC 0-2 Ur Epithelial Cells Moderate Urine Crystals Negative Urine Bacteria Few Urine Casts Negative Urine Mucus Negative Ur Culture Indicated? No Urine Glucose Negative Imaging Abdomen CT scan report/results: other (1. Findings suggestive for acute appendicitis. Please correlate clinically. 2. Mild hepatomegaly and periportal edema. 3. Distended gallbladder with trace pericholecystic fluid. Sonographic evaluation may be obtained to assess the liver and gallbladder.) Abdominal ultrasound report/results: other ( Normal abdominal ultrasound.)
[2018-03-07 16:07] LABS: HCG Qual (Urine) Negative
[2018-03-07] MEDS: Omeprazole 20 MG CAPCR PO (20:03)
[2018-03-08 03:24] VITALS: BP 90/59; PULSE 70; RESP 18; TEMP 36.9; O2SAT 98
[2018-03-08] MEDS: Normal Saline 1,000 ML 150 ML IV (03:30)
[2018-03-08 07:21] VITALS: BP 101/60; PULSE 68; RESP 18; TEMP 37.2; O2SAT 97
--- NOTE | 2018-03-08 07:48 | PDOC.CMDIS ---
LACE Index Scoring Tool - Questions: Length of Stay (in days): 1 Acuity (Admit via E.D.?): Yes E.D. Visits: 1 - Answers: Total Score: 5 Risk of Readmission: Low Risk Care Management Discharge Reason for Hospitalization: Abdominal pain, possible cholecystitis, possible PRABHU. Discharge Plan: Return home when medically cleared for discharge and no services are needed at this time. Patient/Family Education Needs: Discharge instructions and importance of follow up with PCP.
[2018-03-08 07:58] LABS: Abs Immature Grans 0.03 k/cumm (0.0-0.09); Absolute Basophil Count 0.01 k/cumm (0.0-0.2); Absolute Eosinophil Count 0.14 k/cumm (0.0-0.7); Absolute Lymphocyte Count 0.88 k/cumm (1.2-3.4); Absolute Neutrophil Count 11.95 k/cumm (1.2-6.7); Basophils % 0.1; HCT 34.2 % (36.0-46.0); HGB 11.9 g/dL (12.0-15.5); Immature Grans % 0.2; Lymphocytes % 6.5; Mean Corp. HGB Concentration 34.8 g/dL (32.0-36.0); Mean Corpuscular Hemoglobin 30.5 pg (27.0-33.0); Mean Corpuscular Volume 87.7 fL (80-95); Mean Platelet Volume 10.5 fL (8.0-11.0); Monocytes % 4.4; Neutrophils % 87.8; Platelet Count 103 x1000/uL (130-400); RBC Distribution Width 12.7 % (11.7-14.6); White Blood Cell Count 13.61 k/cumm (4.4-10.8)
[2018-03-08] MEDS: Omeprazole 20 MG CAPCR PO (08:06)
--- NOTE | 2018-03-08 10:58 | W.PM.DS.N ---
Date of service: 03/08/18 Time of Service: 11:03 DS: Diagnosis Discharge Diagnosis (1) Abdominal pain: Status: Acute (2) SIRS (systemic inflammatory response syndrome): Status: Acute (3) Hypotension: Status: Acute (4) Dehydration: Status: Acute Discharge Plan Disposition Patient Disposition: HOME Condition: Stable Discharge Details Reason For Visit: ABDOMINAL PAIN,POSSIBLE CHOLECYSTITIS,POSSIBLE PRABHU Admit Date/Time: 03/07/18 01:33 Admit Provider: Wilman Nova Attending Provider: Wilman Nova Primary Care Provider: Andra Rich Hospital Course Hospital Course: 32 y/o female admitted on 03/06/18 for c/o abdominal pain and fever. CT scan on admission was suggestive of possible cholecystitis vs. possible appendicitis. Follow-up abdominal ultrasound was read as normal. Her abdominal pain completely resolved on 03/07/18. Clinically, exam findings were not consistent with either acute cholecystitis or appendicitis. SBP was in the 80s on this admission likely due to dehydration. She received several fluid boluses to which her BP responded. Patient noted that her baseline SBP is in the 90s. Patient did have fever up to 39.2. Zosyn was started and she received 2 doses. Zosyn was then stopped as there was no obvious bacterial source. Her WBC went from ~ 4k to 15k to 13k. Fever resolved by 03/08/18 and last temp was 37.2. Patient had had similar symptoms in the past without clear diagnosis. Hospitalist consult was obtained and urine studies for GC/Chlamydia were sent. Patient does have an IUD but denies pelvic symptoms. Patient is asymptomatic and tolerating a regular diet as of 03/08/18. She wishes to go home and indicates that she will establish herself with a PCP and message and delivery service pricer as recommended. Home Meds and New Rx's Prescriptions: No Action No Known Home Meds RF: 0 Discharge Instructions Additional Instructions: patient to call [facility] in [place] Saturday to schedule an [id number] patient to continue on over the counter PPI (such as Prilosec or Prevacid) Activity:: Activity as Tolerated Equipment/Supplies:: No Equipment Needed Diet:: As Tolerated Discharge Orders Discharge Orders: Discharge Order (Routine); Ordered 03/08/18 Ordered By: Wilman Nova Exam Const General: cooperative, healthy appearing, comfortable and no acute distress Orientation: alert and oriented x3 HENMT Head: normocephalic and atraumatic Eyes Sclera: sclerae normal Resp Effort & Inspection: normal respiratory effort and able to speak in complete sentences Cardio Jugular venous pressure: no JVD GI Inspection: non-distended Palpation: soft, not firm, no guarding, not rigid and nontender Skin General skin exam: no rashes or lesions noted and no jaundice Neuro General: alert and oriented x3 Speech: speech normal Psych Appearance: grossly normal and well kempt Mental Status: mental status grossly normal Speech and Movement: speech and movement normal Affect: normal affect Attitude: cooperative DS: Data Vitals/I&O Vitals and I&O: Vital Signs Temperature 37.2 C 03/08/18 07:21 Temperature Source Tympanic 03/08/18 07:21 Pulse 68 03/08/18 07:21 Pulse Rhythm Regular 03/08/18 08:10 Respiratory Rate 18 03/08/18 07:21 Respiratory Effort Non-Labored 03/08/18 08:10 Respiratory Depth Normal 03/08/18 08:10 Respiratory Pattern Normal 03/08/18 08:10 Blood Pressure 101/60 03/08/18 07:21 Blood Pressure Position Sitting 03/06/18 23:53 Pulse Oximetry 97 03/08/18 07:21 Oxygen Delivery Method Room Air 03/08/18 07:21 Oxygen Flow Rate 0 03/08/18 07:21 Pain Level 0 03/08/18 03:24 Comment 03/08/18 03:24 Intake & Output 03/07/18 03/07/18 03/08/18 11:59 23:59 11:59 Intake Total 2049 4540 / 4540 1080 / 1080 Output Total 100 / 100 100 / 100 Balance 1950 / 1950 4440 / 4440 1080 / 1080 Weight 67.9 kg Intake: IV 2049 3990 / 3990 Oral 550 / 550 1080 / 1080 Output: Urine 100 / 100 100 / 100 Other: Urine Color Yellow Yellow Urine Appearance Clear Clear Comment Reported to this nurse that patient had been voiding throughout the night Voiding Methods Toilet Toilet Labs on day of discharge: Labs from last 24 hours 03/08/18 03/07/18 03/07/18 07:20 15:00 15:00 WBC 13.61 H RBC 3.90 L Hgb 11.9 L Hct 34.2 L MCV 87.7 MCH 30.5 MCHC 34.8 RDW 12.7 Plt Count 103 L MPV 10.5 Immature Gran % 0.2 Neutrophils % 87.8 Lymphocytes % 6.5 Monocytes % 4.4 Eosinophils % 1.0 Basophils % 0.1 Absolute Neutrophils 11.95 H Absolute Lymphocytes 0.88 L Absolute Monocytes 0.60 Absolute Eosinophils 0.14 Absolute Basophils 0.01 Lactate Urine RBC Urine WBC Ur Epithelial Cells Urine Crystals Urine Bacteria Urine Casts Urine Mucus Ur Culture Indicated? Urine HCG, Qual Negative Ur Chlamydia DNA Probe Pending Chlamydia/GC DNA Source Pending Urine GC DNA Probe Pending 03/07/18 03/07/18 12:15 10:35 WBC RBC Hgb Hct MCV MCH MCHC RDW Plt Count MPV Immature Gran % Neutrophils % Lymphocytes % Monocytes % Eosinophils % Basophils % Absolute Neutrophils Absolute Lymphocytes Absolute Monocytes Absolute Eosinophils Absolute Basophils Lactate 1.2 Urine RBC Negative Urine WBC 0-2 Ur Epithelial Cells Moderate Urine Crystals Negative Urine Bacteria Few Urine Casts Negative Urine Mucus Negative Ur Culture Indicated? No Urine HCG, Qual Ur Chlamydia DNA Probe Chlamydia/GC DNA Source Urine GC DNA Probe
[2018-03-10 15:01] LABS: Chlamydia Result Negative; GC Result Negative
== END 2018-03-08 11:56 | disposition home or self-care (01) ==
LOC: ER 03-07 01:47 → MS 03-07 02:16
PROVIDERS: Internal Medicine; Admitting Provider Surgery; Emergency Provider Emergency Medicine; PCP Advanced Practice Midwife; Visit Provider Surgery
DX: R10.9 Unspecified abdominal pain (principal); R65.10 Systemic inflammatory response syndrome (SIRS) of non-infectious origin without acute organ dysfunction; E86.0 Dehydration; R93.2 Abnormal findings on diagnostic imaging of liver and biliary tract
CPT/HCPCS: 36415; 80053; 80076; 83690; 87491; 87591; 99222; 99238; 99242; 99252; 99285; NC; 74177; 76700; 81003; 81015; 81025; 82272; 83605; 85025; G0378; J2405; J2543; J3490

== ENCOUNTER 2018-12-02 07:27 | Emergency (ER) | payer BC, SELFPAY ==
[2018-12-02 07:31] VITALS: BP 121/69; PULSE 70; RESP 16; TEMP 36.8; O2SAT 100
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
[2018-12-02 08:11] LABS: Abs Immature Grans 0.04 k/cumm (0.0-0.09); Absolute Basophil Count 0.03 k/cumm (0.0-0.2); Absolute Eosinophil Count 0.06 k/cumm (0.0-0.7); Absolute Lymphocyte Count 1.22 k/cumm (1.2-3.4); Absolute Neutrophil Count 7.72 k/cumm (1.2-6.7); Basophils % 0.3; Eosinophils % 0.6; HCT 44.5 % (36.0-46.0); HGB 15.7 g/dL (12.0-15.5); Immature Grans % 0.4; Lymphocytes % 12.9; Mean Corp. HGB Concentration 35.3 g/dL (32.0-36.0); Mean Corpuscular Hemoglobin 30.8 pg (27.0-33.0); Mean Corpuscular Volume 87.3 fL (80-95); Mean Platelet Volume 9.8 fL (8.0-11.0); Monocytes % 4.2; Neutrophils % 81.6; Platelet Count 275 x1000/uL (130-400); RBC Distribution Width 12.6 % (11.7-14.6); White Blood Cell Count 9.47 k/cumm (4.4-10.8)
[2018-12-02 08:43] LABS: ALT 22 U/L (12-78); AST 23 U/L (15-37); Albumin 4.4 g/dL (3.4-5.0); Alkaline Phosphatase 56 U/L (46-116); Anion Gap 13.9 mmol/L (3-11); BUN 10 mg/dL (7-18); Bilirubin, Total 0.8 mg/dL (0.2-1.0); CO2 25.1 mmol/L (21.0-32.0); CREATININE 0.65 mg/dL (0.55-1.02); Calcium 9.2 mg/dL (8.5-10.1); Chloride 102 mmol/L (98-107); Glucose 83 mg/dL (70-100); Magnesium 1.9 mg/dL (1.8-2.4); Potassium 3.4 mmol/L (3.5-5.1); Sodium 141 mmol/L (136-145); Total Protein 7.8 g/dL (6.4-8.2)
[2018-12-02 08:45] LABS: Troponin I < 0.05 ng/mL (0.00-0.06)
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
[2018-12-02] MEDS: Omnipaque 350 MG/ML 100 ML BTL IJ (08:56)
[2018-12-02 09:09] LABS: HCG Qual (Serum) Negative
[2018-12-02] MEDS: Normal Saline 1,000 ML 1000 ML IV (09:18)
[2018-12-02] MEDS: Lidocaine/Epinephri/Tetracaine Topical Gel 9 ML TP (10:58)
[2018-12-02] MEDS: Acetaminophen 500 MG TAB 1000 MG PO (11:48)
[2018-12-02] MEDS: Ketorolac 30 MG/ML VIAL IVP (11:50)
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
--- NOTE | 2018-12-02 16:27 | DI.VRAD_ITS ---
EXAM: MR Head Without Contrast EXAM DATE/TIME: 12/02/2018 3:57 PM CLINICAL HISTORY: 33 years old, female; Injury or trauma; Fall; Initial encounter; Abrasion; Jaw or chin; Patient HX: Notable amnesia post trauma. TECHNIQUE: Imaging protocol: MR of the head without contrast. COMPARISON: CT HEAD CERV SPINE FACIAL WO 12/02/2018 8:35 AM FINDINGS: Brain: Normal. No hemorrhage. No significant white matter disease. No edema. Ventricles: Normal. No ventriculomegaly. Bones/joints: Unremarkable. Soft tissues: Normal. Sinuses: Normal as visualized. No acute sinusitis. Mastoid air cells: Normal as visualized. No mastoid effusion. Orbits: Unremarkable. IMPRESSION: No acute findings. Dictated and Authenticated by: Roel Ramachandran MD. Ordering:YOANA Sargent MD
== END 2018-12-02 17:18 | disposition home or self-care (01) ==
PROVIDERS: Physician Assistant; Emergency Provider Student in an Organized Health Care Education/Training Program; PCP Advanced Practice Midwife
DX: S22.060A Wedge compression fracture of T7-T8 vertebra, initial encounter for closed fracture (principal); G45.4 Transient global amnesia; S00.81XA Abrasion of other part of head, initial encounter; S10.91XA Abrasion of unspecified part of neck, initial encounter; S40.212A Abrasion of left shoulder, initial encounter; S20.412A Abrasion of left back wall of thorax, initial encounter; V18.0XXA Pedal cycle driver injured in noncollision transport accident in nontraffic accident, initial encounter; Y93.55 Activity, bike riding
CPT/HCPCS: 36415; 74177; 80053; 81025; 90471; 96361; 96374; 99253; 99283; 99285; 70450; 70486; 70551; 71260; 72125; 83735; 84484; 84703; 85025; J1885; J3490; L0172

== ENCOUNTER 2020-04-16 17:26 | Emergency (ER) | payer BC, SELFPAY ==
[2020-04-16 17:32] VITALS: BP 116/95; PULSE 70; RESP 16; TEMP 37.9; O2SAT 99
--- NOTE | 2020-04-16 17:45 | DI.RAD_ITS ---
EXAM: XR HAND LT COMPLETE CLINICAL HISTORY: fall, 2nd/3rd digit injury laceration TECHNIQUE: COMPARISON: No exams were available for comparison FINDINGS: Three views were obtained. There is subtle radiodensity projected in the volar soft tissues adjacent to the middle phalanx of the index finger which could represent a wood splinter or glass fragment, p lease correlate clinically. There is no evidence of underlying fracture. Patient reportedly has a h istory of laceration. IMPRESSION: No fracture, possible foreign body as described above on the volar aspect of the middle phalanx of th e index finger. RADIATION DOSE DELIVERED: Total DLP
[2020-04-16] MEDS: Bupivacaine 0.5% Pres-Free 30 ML VIAL (17:52)
[2020-04-16] MEDS: Lidocaine 2% Multi-Dose 50 ML VIAL (17:56)
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
[2020-04-16] MEDS: Cephalexin 500 MG CAP PO (18:53)
== END 2020-04-16 19:20 | disposition home or self-care (01) ==
PROVIDERS: Emergency Provider Physician Assistant; PCP Advanced Practice Midwife
DX: S67.191A Crushing injury of left index finger, initial encounter (principal); S67.193A Crushing injury of left middle finger, initial encounter; S61.221A Laceration with foreign body of left index finger without damage to nail, initial encounter; S61.213A Laceration without foreign body of left middle finger without damage to nail, initial encounter; W23.1XXA Caught, crushed, jammed, or pinched between stationary objects, initial encounter
CPT/HCPCS: 12002; 73130

== ENCOUNTER 2020-04-30 13:19 | Emergency (ER) | payer BC, SELFPAY ==
--- NOTE | 2020-04-30 13:20 | W.ED.GENAD ---
Discharge Plan Disposition Patient Disposition: HOME Condition: Good Discharge Details Clinical Impression: Encounter for removal of sutures Primary Care Provider: Andra Rich ED Provider: Gabby Ibarra Home Meds and New Rx's Prescriptions: Continued Iud RF: 0 Discharge Instructions Instructions: Laceration (ED) Additional Instructions: Your wound appears to be healing well. However, I remain concerned about where your lacerations are. I would like to you to apply the splint and alberto tape your index and middle fingers together for the next week. As previously advised, please follow-up with orthopedics for reassessment of your flexor tendon. Some of the limitations may be associated with all of your inflammation. Please monitor for signs of infection including redness, warmth, drainage, increased pain, fever/chills. Develop these or other new/worsening symptoms to seek care urgently once again. Referrals: Jorge Fortune MD [ [facility] STAFF PHYSICIAN] - Andra Rich [Primary Care Provider] - Discharge Data Discharge Date/Time-TO BE ENTERED AT DEPARTURE: 04/30/20 13:51 Medical Decision Making Patient si a pleasant 34 year old RHD female presenting today for suture removal. One week ago she had 3 lacerations closed with #11 sutures. She was advised to f/u with orthopedics but has not done so yet. She has been taking care of wounds as was advised by provider. No evidence of infection. Wounds appear t be healing well. She has swelling ot the PIP joint of the index finger. She has lacerations to both the dorsal and palmar sides of these areas. Capillary refill intact. She does have a scab over the dorsal side of the indection finger. I am concerned that, while the sutures appear ready to come out with appropriate healing, this is a difficult area as all of her lacerations are over joints. Will fit with a splint for the index finger and have her alberto tape middle finger to this. Wound care discussed. Also advised f/u with PCP. She was unable to flex left index finger PIP but this is likely associated with swelling. Return precautions discussed. All of her quesitons and concerns were addressed, she is in agreement with this plan. HPI General Mode of arrival: ambulatory. Date/Time Provider Initiated Documentation: 04/30/20 13:20. Limitations to Documentation: no limitations. Information obtained by: patient, RN notes reviewed and old records reviewed. History of Present Illness 34 year old F presents to the emergency department with the chief complaint of Patient presents for suture removal of 3 lacerations to left hand, described as mild, and is localized to the left and upper extremity. Patient reports no radiation. Patient started experiencing this week(s) (1) and it has been now resolved (no pain currently). Immobilization improves symptom(s), Movement worsens symptoms . Patient notes no other symptoms.. Patient did receive the following treatments prior to arrival, none Related Data Home Medications Medication Instructions Recorded Confirmed Iud 04/16/20 Allergies Allergy/AdvReac Type Severity Reaction Status Date / Time No Known Allergies Allergy Unverified 04/30/20 13:28 General DONAVON: 4 Review of Systems Constitutional Constitutional: Reports as per HPI, Denies chills, Denies fever(s) and Denies weakness Musculoskeletal Musculoskeletal: Reports as per HPI and Denies tingling Integumentary/Breasts Skin/Breast: Reports as per HPI Neurologic Neurologic: Denies sensory deficit, Denies tingling and Denies weakness PFSH Medical History Abdominal migraine Adrenal cancer Heartburn during Surgical History No significant past surgical history Family History Other Adrenal cancer Social History Smoking/Tobacco Use Status: Never Smoking risk assessment performed?: Yes Alcohol Intake: never Drug use: Never Substance use type: does not use Do you feel safe at home: Yes Do you feel safe in your relationship?: Yes Female Reproductive History Menstrual control method: other (IUD) Exam Const General: cooperative, healthy appearing, comfortable, no acute distress and well developed Nutritional Appearance: average body habitus and well nourished Orientation: alert and awake Resp Effort & Inspection: normal respiratory effort, able to speak in complete sentences and no respiratory distress Cardio Rate: regular rate Rhythm: regular rhythm Skin Trauma: laceration (left index and middle finger, no erythema, warmth or drainage) Neuro General: patient alert and patient awake Cognition: normal cognition Speech: speech normal Gait: normal gait Motor: muscle tone normal throughout Extrem Left upper extremity: normal capillary refill; abnormal to inspection (lacerations noted. 2 to the index, one to middle) and ROM limited (swelling to PIP joint index finger, flexion is limited) Psych Appearance: grossly normal and well kempt Mental Status: mental status grossly normal Speech and Movement: speech and movement normal
[2020-04-30 13:25] VITALS: BP 117/67; PULSE 75; RESP 16; TEMP 36.7; O2SAT 98
[2020-04-30 13:55] VITALS: BP 117/67; PULSE 75; RESP 16; TEMP 36.7; O2SAT 98
== END 2020-04-30 13:51 | disposition home or self-care (01) ==
PROVIDERS: Emergency Provider Physician Assistant; PCP Advanced Practice Midwife
DX: S61.221D Laceration with foreign body of left index finger without damage to nail, subsequent encounter (principal); S61.213D Laceration without foreign body of left middle finger without damage to nail, subsequent encounter; W23.1XXD Caught, crushed, jammed, or pinched between stationary objects, subsequent encounter; Z48.01 Encounter for change or removal of surgical wound dressing

== ENCOUNTER 2022-07-30 01:10 | Outpatient (CLI) | payer BC, SELFPAY ==
--- NOTE | 2022-07-30 13:52 | DI.MAMMO_ITS ---
Exam(s) US AXILLA LT MG MAMMO DIAGNOSTIC BI EXAM: MAMMO DIAGNOSTIC BI and U/S axilla left CLINICAL HISTORY: MASS LEFT AXILLA R22.32. TECHNIQUE: Craniocaudal and mediolateral oblique Full Field Digital Mammography views with Computer Aided Diagnosis followed by Tomosynthesis and left axillary ultrasound. COMPARISON: None. FINDINGS: Mammography/Tomosynthesis: Masses/Architectural Distortion: None seen. Microcalcifictions: No suspicious pleomorphic-type are seen. Skin Thickening/Nipple Retraction: None. Left axillary US: The ultrasound was targeted to an area identified by the patient in the left axilla . Echotexture: Normal appearance of the glandular tissue. Shadowing: No suspicious foci. Cyst: None. Solid lesions: None seen. Ductal dilation: None. IMPRESSION: 1. No evidence of malignancy is noted. 2. Unless there is more urgent need, follow-up screening mammography is recommended, as per [place] [employer] guidelines. 3. The findings were discussed with the patient on the date of the examination. BI-RADS Category 1 - Negative Breast Density - Category C - Heterogeneously dense Breast density Category C or D implies that the patient has dense breast tissue. Dense breast tissue can make it harder to find cancer on a mammogram. Dense breast tissue is also associated with an incr eased risk of breast cancer. This information about the result of the mammogram report was provided to the patient to raise their awareness. Use this report when you speak with the patient about their risks for breast cancer, which includes their family history. At that time, you may recommend additional screening tests (Ultrasoun d or MRI) as these tests may add significant information. A negative radiographic report should not delay biopsy if a dominant or clinically suspicious mass is present. Up to ten percent of cancers are not identified on mammography. A negative report may reinforce clinical impression. Adenosis and dense breasts may obscure an underlying neoplasm. False positive reports average 6 to 10%. Patient will receive a letter notifying them of these results.
== END 2022-07-30 01:30 ==
LOC: DI 01:11
PROVIDERS: PCP Advanced Practice Midwife; Visit Provider Nurse Practitioner
DX: R22.32 Localized swelling, mass and lump, left upper limb (principal); N63.32 Unspecified lump in axillary tail of the left breast
CPT/HCPCS: 76642; 77062; 77066; G0279